=== PATIENT | female | born 1960 | race Caucasian/White ===

== ENCOUNTER → 2017-05-04 | Outpatient (CLI) | payer OTHER | END | disposition home or self-care (01) | LOC: MAMMO 14:57 | DX: Z12.31 Encounter for screening mammogram for malignant neoplasm of breast (principal) | CPT/HCPCS: 77067 ==

== ENCOUNTER → 2019-03-11 | Outpatient (CLI) | payer OTHER ==
[2018-05-16 08:40] VITALS: BP 119/59
[~2019-03-11] MED LIST: ACET500T68 PO; AMLO5TAB10 PO; ATEN50TA PO; CHOL200059 PO; CYAN100031 PO; DOXY100C14 PO; ESTR2TAB PO; HYDR12.58 PO; LISI1TAB20 PO; MULT-246 PO; OMEG10005 PO; OXYC1TAB15 PO; POTA99TA3 PO
[2019-03-11 09:10] LABS: BASO # 0.1 x10^3/uL (0.0-0.2); BASO % 1 % (0-3); EOS # 0.2 x10^3/uL (0.0-0.7); EOS % 2 % (0-3); HEMATOCRIT 42.4 % (36.0-47.0); HEMOGLOBIN 14.5 g/dL (12.0-15.5); LYMPH # 3.5 x10^3/uL (1.0-4.8); LYMPH % 39 % (24-48); MEAN CORPUSCULAR HEMOGLOBIN 31 pg (25-35); MEAN CORPUSCULAR HGB CONC 34 g/dL (31-37); MEAN CORPUSCULAR VOLUME 91 fL (79-100); MONO # 0.6 x10^3/uL (0.0-1.1); MONO % 7 % (0-9); NEUT # 4.7 x10^3/uL (1.8-7.7); NEUT % 52 % (31-73); PLATELET COUNT 261 x10^3/uL (140-400); RED BLOOD COUNT 4.66 x10^6/uL (3.50-5.40); RED CELL DISTRIBUTION WIDTH 12.8 % (11.5-14.5); WHITE BLOOD COUNT 9.1 x10^3/uL (4.0-11.0)
[2019-03-11 09:20] LABS: PROTHROMBIN TIME PATIENT 12.1 SEC (11.7-14.0)
[2019-03-11 09:24] LABS: ALBUMIN 3.1 g/dL (3.4-5.0); CALCIUM 9.3 mg/dL (8.5-10.1); CREATININE 1.1 mg/dL (0.6-1.0); GFR 50.8; POTASSIUM 4.2 mmol/L (3.5-5.1)
--- NOTE | 2019-03-11 12:30 | EKG ---
[facility] [address] [place] [address] Test Date: 2019-03-11 Test Time: 12:24:41 Pat Name: RASHAUN DUMAS Department: Room: Gender: F Mortgage Processing Manager: : 1960 Requested By: ADOLFO FLYNN Order Number: [id number] Reading MD: Javier Escalante Measurements Intervals [place] Rate: 66 P: 49 NC: 180 QRS: -17 QRSD: 76 T: 26 QT: 422 QTc: 444 Interpretive Statements SINUS RHYTHM LEFTWARD AXIS Electronically Signed On 03-11-2019 13:52:15 TEST BAKER by Javier Escalante
--- NOTE | 2019-03-11 16:18 | RAD ---
EXAM: Chest, 2 views. HISTORY: Hypertension. COMPARISON: None. FINDINGS: 2 views of the chest are obtained. There is no infiltrate, pleural effusion or pneumothorax. The heart is normal in size. IMPRESSION: No acute pulmonary finding. Electronically signed by: Samanta Garrison MD (03/11/2019 4:15 PM) [facility]
== END | disposition home or self-care (01) ==
LOC: SURGPAT 12:52
PROVIDERS: ATTEND Orthopaedic Surgery
DX: Z01.818 Encounter for other preprocedural examination (principal); M17.11 Unilateral primary osteoarthritis, right knee; I10 Essential (primary) hypertension; Z88.8 Allergy status to other drugs, medicaments and biological substances
CPT/HCPCS: 36415; 71046; 80048; 82040; 82306; 85025; 85610; 85651; 85730; 87641; 93005

== ENCOUNTER 2019-03-26 06:11 | Inpatient (IN) | payer OTHER ==
[2019-03-26] VITALS (10 sets, daily range): BP systolic 103–134; BP diastolic 55–72
[~2019-03-26] VITALS: Ht 160 cm; Wt 102.1 kg
[~2019-03-26 06:11] MED LIST changes: +ACETAMINOPHEN 500 MG TABLET PO PRN; +GABAPENTIN 300 MG CAPSULE. PO PRN; +MORPHINE SULFATE 5 MG, KETOROLAC 30MG VIAL 30 MG, ROPIVacaine 0.5% PF 60 ML, EPINEPHrin... INT ART ONE; +TRANEXAMIC ACID 1,000 MG in IV NS 50ML -- 1ST BAG INJ ONE
[2019-03-26] MEDS ORDERED: fentaNYL PF VIAL 100 MCG/2 ML VIAL IV PRN ×3 (07:00→07:30)
[2019-03-26] MEDS ORDERED: PROCHLORPERAZINE 10 MG/2 ML VIAL. IV PRN (07:00)
[2019-03-26] MEDS ORDERED: IV RINGERS,LACTATED 1000ML 1,000 ML IV SCH (07:00)
[2019-03-26] MEDS ORDERED: ONDANSETRON PF 4 MG/2 ML VIAL. IV PRN (07:00)
[2019-03-26] MEDS ORDERED: ROCURONIUM 50 MG/5 ML VIAL. ONE (07:19)
[2019-03-26] MEDS ORDERED: fentaNYL PF VIAL 250 MCG/5 ML VIAL ONE (07:19)
[2019-03-26 07:30] LABS: PROTHROMBIN TIME PATIENT 12.6 SEC (11.7-14.0)
[2019-03-26] MEDS ORDERED: diphenhydrAMINE 50 MG/ML VIAL IV PRN (07:30)
[2019-03-26] MEDS ORDERED: ZOLPIDEM 5 MG TABLET. PO PRN (07:30)
[2019-03-26] MEDS ORDERED: ACETAMINOPHEN 500 MG TABLET PO PRN (07:30)
[2019-03-26] MEDS ORDERED: PROCHLORPERAZINE 5 MG TABLET. PO PRN (07:30)
[2019-03-26] MEDS ORDERED: CALCIUM CARBONATE 500 MG TAB.CHEW PO PRN (07:30)
[2019-03-26] MEDS ORDERED: DEXTROSE 50% 25 GM / 50ML DISP.SYRIN. IV PRN (07:30)
[2019-03-26] MEDS ORDERED: MORPHINE SULFATE 2 MG/ML VIAL. IV PRN (07:30)
[2019-03-26] MEDS ORDERED: IV NORMAL SALINE 1000ML BAG 1,000 ML IV SCH (07:30)
[2019-03-26] MEDS ORDERED: 0.9 % SODIUM CHLORIDE 10 ML DISP.SYRIN. IV PRN (07:30)
[2019-03-26] MEDS ORDERED: TRANEXAMIC ACID 1,000 MG in IV NS 50ML -- 2ND BAG INJ ONE (08:00)
[2019-03-26] MEDS: FERROUS SULFATE 325 MG TABLET. PO SCH ×2 (08:00→17:24)
--- NOTE | 2019-03-26 08:11 | HP ---
ADMIT DATE: 03/26/2019 CHIEF COMPLAINT: Right knee pain. HISTORY OF PRESENT ILLNESS: The patient has longstanding right knee degenerative joint disease that got only partial relief from previous injections including steroid and viscosupplementation. She is very limited and very pleased with her total knee arthroplasty on the left and wished to proceed with more definitive treatment as of her last clinic visit. PAST MEDICAL HISTORY: Significant for hypertension, one functional kidney, history of rheumatic fever as a child, osteoarthritis. PAST SURGICAL HISTORY: Gastric bypass, total left knee arthroplasty, tonsillectomy, hysterectomy, cholecystectomy, ureter surgery on the kidney and laparoscopic appendectomy. FAMILY HISTORY: Hypertension, arthritis and skin cancer in her otherwise healthy 81-year-old mom. Hypertension and heart disease in her 83-year-old dad. Diabetes in her 56-year-old brother. SOCIAL HISTORY: Denies smoking or drug use. Occasional social alcohol use. Lives at home with her . MEDICATIONS: List is reviewed. ALLERGIES: INCLUDE CODEINE, WHICH UPSETS HER STOMACH A REACTION WELL NONSTEROIDALS WHICH SHE CANNOT TAKE DUE TO HER PREVIOUS GASTRIC BYPASS SURGERY. PHYSICAL EXAMINATION: GENERAL: Height 63.5, weight 225, BMI 39.23. VITAL SIGNS: Per admission sheet. HEENT: Atraumatic, normocephalic. HEART: Regular rate and rhythm. LUNGS: Clear to auscultation bilaterally. ABDOMEN: Benign. EXTREMITIES: Examination of the right knee reveals tender over both the medial and lateral joint line. No gross ligament instability. She has a slight patellofemoral crepitus without instability. Well-healed incision on the contralateral knee from total knee arthroplasty. Good alignment, stability of bilateral hips and ankles. IMAGING: X-rays show tricompartmental degenerative disease of the right knee. ASSESSMENT: Primary osteoarthritis, right knee and history of well-functioning left total knee arthroplasty. TREATMENT PLAN: She is familiar with total knee arthroplasty on the left from 5 years ago. We reviewed with her risks, benefits, postoperative course of total knee arthroplasty including possibility of infection, continued pain, premature wear or loosening, nerve or blood vessel damage, medical or other anesthetic complications among others. Her was particularly concerned with pain control measures in the immediate postoperative range especially, I explained this to him. She wishes to proceed with surgical treatment for a right total knee arthroplasty with [facility] admission to follow up. ADOLFO FLYNN MD DR: GRACIELA/timur JOB#: [id number] / [id number]
[2019-03-26] MEDS ORDERED: ONDANSETRON PF 4 MG/2 ML VIAL. ONE (08:12)
[2019-03-26] MEDS ORDERED: SEVOFLURANE > 120 MINUTES. IH ONE (08:12)
[2019-03-26] MEDS ORDERED: DEXAMETHASONE SOD PHOS 4 MG/ML VIAL ONE (08:12)
[2019-03-26] MEDS ORDERED: PROPOFOL 20 ML IV ONE (08:12)
[2019-03-26] MEDS ORDERED: LIDOCAINE 2% PF 5 ML VIAL. ONE (08:12)
[2019-03-26] MEDS: DOXYCYCLINE HYCLATE 100 MG TABLET PO SCH ×2 (09:00→21:00)
[2019-03-26] MEDS: MULTIVITAMIN with MINERAL TABLET. PO SCH (09:00)
[2019-03-26] MEDS: SENNOSIDES/DOCUSATE 8.6/50MG TABLET. PO SCH (09:00)
[2019-03-26] MEDS ORDERED: NON FORMULARY ITEM (Potassium Gluconate 99 MG) PO SCH (09:00)
[2019-03-26] MEDS: hydroCHLOROthiazide 25 MG TABLET PO SCH (09:00)
[2019-03-26] MEDS: ATENOLOL 50 MG TABLET. PO SCH ×2 (09:00→20:33)
[2019-03-26] MEDS ORDERED: NON FORMULARY ITEM (Multivitamin (Multi-Vitamin Daily) 1 EACH) PO SCH (09:00)
[2019-03-26] MEDS: LISINOPRIL 20 MG TABLET PO SCH (09:00)
[2019-03-26] MEDS: ESTRADIOL 1 MG TABLET. PO SCH (09:00)
[2019-03-26] MEDS: amLODIPine BESYLATE 5 MG TABLET PO SCH (09:00)
[2019-03-26] MEDS ORDERED: NEOSTIGMINE METHYLSULFATE 5 MG/5 ML SYRINGE. ONE (09:27)
[2019-03-26] MEDS ORDERED: GLYCOPYRROLATE 1 MG/5 ML VIAL. ONE (09:27)
[2019-03-26] MEDS ORDERED: HYDROmorphone 2 MG/ML VIAL ONE (10:19)
[2019-03-26] MEDS: HYDROmorphone 2 MG/ML VIAL IV PRN ×3 (10:34→11:02)
--- NOTE | 2019-03-26 10:38 | RAD ---
Examination: KNEE RIGHT 2V History: Postoperative Comparison/Correlation: None Findings: Frontal and lateral views of the right knee were obtained. Overlying bandages are present. Total right knee joint arthroplasty is present. Soft tissue gas compatible with immediate postoperative status is noted. No fracture. No significant joint effusion. Impression: Total right knee arthroplasty. No suspicious finding. Electronically signed by: Calixto Cardona MD (03/26/2019 10:35 AM) [facility]
--- NOTE | 2019-03-26 11:30 | NUR ---
arrived to floor via bed. she is rating he pain 7-8. she has good motion, sensation and bilateral pulses. o2 sat on room air is down to 55%. applied o2 per nasal cannula ; gradually up to 4l to get a saturation of 95%.. oriented to room; at bedside. will reinforce orientation and history when aroused.
--- NOTE | 2019-03-26 11:34 | PDOC4 ---
Operative Note Operative Note Date of surgery: 03/26/2019 Preoperative diagnosis: Degenerative joint disease right knee Postoperative diagnosis: Same Operative procedure: Right total knee arthroplasty Surgeon: Mee Assist: Amaya Anesthesia: Gen. Estimated blood loss: 10 mL Complications: None Specimens: Cartilage surfaces to pathology Drains: Hemovac drain and intra-articular pain catheter Operative indications: Please see my preoperative history and physical and previous clinic notes for detail operative indications. Operative text: Patient was identified procedure verified patient placed in the supine position on the operating table after adequate amounts of general anesthesia were administered the right lower extremity was prepped and draped in standard sterile fashion with a thigh tourniquet. After timeout was performed patient procedure identified and verified the right lower extremity was exsanguinated by Esmarch bandage tourniquet inflated to 350 mmHg a midline incision was made with a medial parapatellar approach fat pad was excised patella was everted femur was drilled for the intramedullary guide and an additional 2 mm was taken off due to her flexion contracture.. Distal sizing was carried out using a size 4 femoral cutting block which was used to cut AP lateral chamfer cuts in 3 of external rotation tibia was exposed and the extra medullary cutting guide was placed in line with the second metatarsal PCL was preserved and flexion extension gaps were noted to be excellent with a 12 mm spacer block and a size 4 tibial component was pinned in place drilled and broached. Cruciate retaining femoral component was placed and I elected to do a medial congruent supplementation due to some PCL laxity although ligament overall was intact and stability was excellent with full range of motion excellent ligament balance patella was medialized with a size 29 patellar component which noted excellent tracking and lateral patellar bone was removed to prevent any impingement. Trial components removed bleeding points controlled by electrocautery thorough irrigation carried out normal saline solution and the following components were cemented in place with polymethylmethacrylate cement a size 4 right journey nonporous tibial baseplate a size 4 cruciate retaining Oxinium femoral component with a temporary 12 mm deep dish articular insert and a 29 mm resurfacing round patellar component were cemented in place excess cement was removed due to the excellent fitting the 12 mm deep dished articular insert was replaced after thorough irrigation carried out normal saline solution Hemovac drain pain catheter were placed pain catheter mixture was injected throughout the joint capsule retinaculum was closed with #2 Ethibond suture in an interrupted fashion and reinforced with #1 PDS strata fix suture subcutaneous closure with buried Vicryl suture skin closure with 30 strata fix Monocryl robbie dressing with Acticoat were placed and patient was returned to recovery room in stable condition having tolerated the procedure well toes were noted be warm pink find deflation of the tourniquet Piotr Conde nurse practitioner was present for the procedure and assisted in the prepping draping retraction and skin closure ADOLFO FLYNN MD Mar 26, 2019 11:34
[2019-03-26] MEDS: ONDANSETRON ODT 4 MG TAB.RAPDIS. PO SCH ×2 (12:00→17:26)
[2019-03-26] MEDS: ONDANSETRON PF 4 MG/2 ML VIAL. IV SCH ×2 (12:00→15:54)
--- NOTE | 2019-03-26 13:24 | NUR ---
alessia Viera nausea or vomiting noted Addendum: 03/26/19 at 1326 by STEVEN CASTELLANO RN Oxygen level decreased to 2l/NC sat level 97%, arya % texting on cell phone
[2019-03-26] MEDS ORDERED: WARFARIN 7.5 MG TABLET. PO ONE (16:00)
--- NOTE | 2019-03-26 16:00 | NUR ---
Antihypertensives held for vital signs of 115/64 & 69
[2019-03-26] MEDS: oxyCODONE IR 5 MG TABLET PO PRN (19:10)
--- NOTE | 2019-03-26 19:28 | NUR ---
order obtained to have medication given through her IAC. will obtain
[2019-03-26] MEDS: KETOROLAC 30MG VIAL 30 MG, BUPIVACAINE MPF 0.25% 20 ML, EPINEPHrine 0.5 MG in TOTAL VOL... INT ART SCH (19:39)
[2019-03-27 03:29] VITALS: BP 103/53
[2019-03-27 04:53] LABS: HEMATOCRIT 33.4 % (36.0-47.0); HEMOGLOBIN 11.3 g/dL (12.0-15.5)
[2019-03-27 05:11] LABS: PROTHROMBIN TIME PATIENT 16.2 SEC (11.7-14.0)
[2019-03-27] MEDS: KETOROLAC 30MG VIAL 30 MG, BUPIVACAINE MPF 0.25% 20 ML, EPINEPHrine 0.5 MG in TOTAL VOL... INT ART SCH (05:46)
[2019-03-27] MEDS: ONDANSETRON PF 4 MG/2 ML VIAL. IV SCH ×2 (05:51)
[2019-03-27] MEDS: traMADol 50 MG TABLET PO SCH ×3 (05:52→17:54)
[2019-03-27] MEDS ORDERED: MAGNESIUM HYDROXIDE 2,400 MG/30 ML ORAL.SUSP. PO PRN (06:00)
[2019-03-27] MEDS: ONDANSETRON ODT 4 MG TAB.RAPDIS. PO SCH ×2 (06:00)
[2019-03-27] MEDS: GABAPENTIN 100 MG CAPSULE. PO SCH ×3 (06:00→21:35)
[2019-03-27 06:21] VITALS: BP 117/64
--- NOTE | 2019-03-27 07:38 | PDOC ---
ORTHO PROGRESS NOTES Subjective Patient sleeping but easily awakened with mild complaint of pain. Post-op Day: 1 Procedure R TKA Vitals Vital Signs Date Time Temp Pulse Resp B/P (MAP) Pulse Ox O2 Delivery O2 Flow Rate FiO2 03/27/19 06:52 18 Room Air 03/27/19 06:21 98.5 64 117/64 (81) 94 98.5 03/26/19 21:19 3.0 Labs Laboratory Tests Test 03/26/19 06:24 03/27/19 04:00 Prothrombin Time 12.6 SEC (11.7-14.0) 16.2 SEC (11.7-14.0) Prothromb Time International Ratio 1.0 (0.8-1.1) 1.3 (0.8-1.1) Activated Partial Thromboplast Time 26 SEC (24-38) Hemoglobin 11.3 g/dL (12.0-15.5) Hematocrit 33.4 % (36.0-47.0) Mean Corpuscular Hemoglobin Concent 34 g/dL (31-37) Laboratory Tests Test 03/27/19 04:00 Hemoglobin 11.3 g/dL (12.0-15.5) Hematocrit 33.4 % (36.0-47.0) Mean Corpuscular Hemoglobin Concent 34 g/dL (31-37) Prothrombin Time 16.2 SEC (11.7-14.0) Prothromb Time International Ratio 1.3 (0.8-1.1) Notes Awakened and comfortable at this time. Assessment and Plan POD # 1 S/P R TKA motor and sensation intact distally moving toes and foot without restriction dressing dry and intact PT/OT today KINZA NELSON APRN Mar 27, 2019 07:38
[2019-03-27] MEDS: DOXYCYCLINE HYCLATE 100 MG TABLET PO SCH (09:00)
[2019-03-27 09:19] VITALS: BP 124/69
[2019-03-27] MEDS: hydroCHLOROthiazide 25 MG TABLET PO SCH (09:21)
[2019-03-27] MEDS: MULTIVITAMIN with MINERAL TABLET. PO SCH (09:21)
[2019-03-27] MEDS: CYANOCOBALAMIN (VITAMIN B-12) 1,000 MCG TABLET. PO SCH (09:21)
[2019-03-27] MEDS: amLODIPine BESYLATE 5 MG TABLET PO SCH (09:22)
[2019-03-27] MEDS: LISINOPRIL 20 MG TABLET PO SCH (09:22)
[2019-03-27] MEDS: oxyCODONE IR 5 MG TABLET PO PRN ×2 (09:22→16:18)
[2019-03-27] MEDS: CHOLECALCIFEROL (VITAMIN D3) 5,000 UNIT CAPSULE PO SCH (09:22)
[2019-03-27] MEDS: ATENOLOL 50 MG TABLET. PO SCH ×2 (09:23→21:37)
[2019-03-27] MEDS: ACETAMINOPHEN 500 MG TABLET PO SCH ×3 (09:23→21:36)
[2019-03-27] MEDS: SENNOSIDES/DOCUSATE 8.6/50MG TABLET. PO SCH (09:23)
[2019-03-27] MEDS: ESTRADIOL 1 MG TABLET. PO SCH (09:23)
[2019-03-27] MEDS: FERROUS SULFATE 325 MG TABLET. PO SCH ×2 (09:23→16:16)
[2019-03-27] MEDS ORDERED: ONDANSETRON ODT 4 MG TAB.RAPDIS. PO PRN (12:00)
[2019-03-27] MEDS ORDERED: ONDANSETRON PF 4 MG/2 ML VIAL. IV PRN (12:00)
--- NOTE | 2019-03-27 13:46 | NUR ---
Pharmacy Warfarin Dosing Note S:Pharmacy consulted to assist with anticoagulation therapy started 03/26/19 with target INR: 1.6 - 2.5 O:RASHAUN DUMAS is a 58 year old F s/p Right TKA LABS: Last INR: 1.3 Last HGB: 11.3 Last HCT: 33.4 Last PLT: - Last dose of 7.5 mg given on 03/26/19 at 1724 Previous Regimen: NA Vitamin K given: N Drug Interaction Changes: Same Interacting Drug Ongoing Drug Interactions: Doxycycline A:INR of 1.3 is below desired range. Target range for this patient is: 1.6 - 2.5 P: Warfarin dose: 5 mg Today at 1600 Bridge Therapy: None Next INR due 03/28/19 Pharmacy anticoagulation service will continue to follow. AURY LOPEZ, [facility], 03/27/19 1404
--- NOTE | 2019-03-27 15:09 | NUR ---
IAC discontinued per order tolerated procedure well, foam dressing applied to site
[2019-03-27] MEDS ORDERED: WARFARIN 5 MG TABLET. PO ONE (16:00)
[2019-03-27] MEDS ORDERED: BISACODYL 10 MG SUPP.RECT. PR PRN (16:00)
[2019-03-27 18:17] VITALS: BP 130/61
[2019-03-27] MEDS ORDERED: LACTOBACILLUS RHAMNOSUS GG 1 CAPSULE. PO SCH (21:00)
[2019-03-28] MEDS: traMADol 50 MG TABLET PO SCH ×4 (00:21→17:57)
[2019-03-28] MEDS: ACETAMINOPHEN 500 MG TABLET PO SCH ×4 (03:08→21:35)
[2019-03-28 05:05] VITALS: BP 109/54
[2019-03-28 05:30] LABS: HEMATOCRIT 34.3 % (36.0-47.0); HEMOGLOBIN 11.9 g/dL (12.0-15.5)
[2019-03-28 05:48] LABS: PROTHROMBIN TIME PATIENT 19.2 SEC (11.7-14.0)
[2019-03-28] MEDS: GABAPENTIN 100 MG CAPSULE. PO SCH ×3 (06:34→21:35)
[2019-03-28 08:30] VITALS: BP 131/71
[2019-03-28] MEDS: oxyCODONE IR 5 MG TABLET PO PRN ×3 (08:52→21:33)
[2019-03-28] MEDS: ESTRADIOL 1 MG TABLET. PO SCH (08:53)
[2019-03-28] MEDS: FERROUS SULFATE 325 MG TABLET. PO SCH ×2 (08:53→17:02)
[2019-03-28] MEDS: SENNOSIDES/DOCUSATE 8.6/50MG TABLET. PO SCH (08:53)
[2019-03-28] MEDS: MULTIVITAMIN with MINERAL TABLET. PO SCH (08:53)
[2019-03-28] MEDS: amLODIPine BESYLATE 5 MG TABLET PO SCH (08:54)
[2019-03-28] MEDS: LISINOPRIL 20 MG TABLET PO SCH (08:54)
[2019-03-28] MEDS: ATENOLOL 50 MG TABLET. PO SCH ×2 (08:55→21:35)
[2019-03-28] MEDS: hydroCHLOROthiazide 25 MG TABLET PO SCH (08:55)
--- NOTE | 2019-03-28 11:07 | NUR ---
Pharmacy Warfarin Dosing Note S:Pharmacy consulted to assist with anticoagulation therapy started 03/26/19 with target INR: 1.6 - 2.5 O:RASHAUN DUMAS is a 58 year old F with TKA Right TKA LABS: Last INR: 1.6 Last HGB: 11.9 Last HCT: 33.4 Last PLT: - Last dose of 5 mg given on 03/27/19 at 1724 Previous Regimen: Vitamin K given: N Drug Interaction Changes: Same Interacting Drug Ongoing Drug Interactions: Doxycycline A:INR of 1.6 is within desired range. Target range for this patient is: 1.6 - 2.5 P: Warfarin dose: 3 mg Bridge Therapy: None Next INR due TOMORROW Pharmacy anticoagulation service will continue to follow. MAGNUS PARADA [facility], 03/28/19 [id number]
--- NOTE | 2019-03-28 12:42 | PDOC ---
ORTHO PROGRESS NOTES Subjective Right knee pain increased after starting PT yesterday, up and walking. Denies chest pain, shortness of breath. Post-op Day: 2 Procedure RIGHT knee TKA Vitals Vital Signs Date Time Temp Pulse Resp B/P (MAP) Pulse Ox O2 Delivery O2 Flow Rate FiO2 03/28/19 08:55 76 131/71 03/28/19 08:30 Room Air 03/28/19 05:05 98.8 20 93 98.8 Labs Laboratory Tests Test 03/27/19 04:00 03/28/19 05:11 Hemoglobin 11.3 g/dL (12.0-15.5) 11.9 g/dL (12.0-15.5) Hematocrit 33.4 % (36.0-47.0) 34.3 % (36.0-47.0) Mean Corpuscular Hemoglobin Concent 34 g/dL (31-37) 35 g/dL (31-37) Prothrombin Time 16.2 SEC (11.7-14.0) 19.2 SEC (11.7-14.0) Prothromb Time International Ratio 1.3 (0.8-1.1) 1.6 (0.8-1.1) Laboratory Tests Test 03/28/19 05:11 Hemoglobin 11.9 g/dL (12.0-15.5) Hematocrit 34.3 % (36.0-47.0) Mean Corpuscular Hemoglobin Concent 35 g/dL (31-37) Prothrombin Time 19.2 SEC (11.7-14.0) Prothromb Time International Ratio 1.6 (0.8-1.1) Notes Bilateral lower extremities benign, calf non tender bilaterally with no warmth, palpable cords, neg Bea's bilaterally. N/V intact. Muscle pain. Vitals normal and Hgb improving. Problems: (1) S/P total knee arthroplasty Assessment and Plan Post op Day 2 doing well with anticipated increased pain following PT. Continue PT/OT efforts. Continue current medications. Problem Qualifiers (1) S/P total knee arthroplasty: Laterality: right Qualified Codes: Z96.651 - Presence of right artificial knee joint KINZA LORENZO Jr. PAC Mar 28, 2019 12:42 pm
--- NOTE | 2019-03-28 14:07 | PATHOLOGY ---
[facility] Accession Number: [id number] . 01 Material submitted: . knee - RIGHT KNEE ARTICULATING SURFACES. Modifiers: right . 01 Clinical history: . Primary osteoarthritis . 02 Diagnosis: Bone, "right knee articulating surfaces", removal: - Degenerative osteoarthritis. - Synovial tissue with focal mild chronic inflammation. (SKM:lars; 03/28/2019) MBR 03/28/2019 1246 Local . 02 Electronically signed: . Gabriel Osuna MD, Pathologist NPI- [id number] . 01 Gross description: . Received in formalin labeled "Aaliyah Garcia, right knee articulating surfaces," are multiple segments of bone, including tibial plateau, measuring 13.7 x 11.8 x 2.2 cm in aggregate dimensions. Soft tissue and meniscus are present. The specimen displays focal eburnation of the articular surfaces. Placement Specialist bone and soft tissue are submitted in cassette A1, following decalcification. (DAC; 03/27/2019) XDC/XDC 03/27/2019 0809 Local . 02 Pathologist provided ICD-10: M17.11, M65.9 . 02 CPT . 583137, [id number] Specimen Comment: A courtesy copy of this report has been sent to [phone], [phone] Specimen Comment: [id number] Specimen Comment: Report sent to and Specimen Comment: A duplicate report has been generated due to demographic updates. Performed at: 01 [facility] [address], [place], [place] [id number] MD Aquiles Davis MD Phone: [phone] Performed at: 02 [facility] [address], [place] [id number] MD Kumar Chavez MD Phone: [phone]
[2019-03-28] MEDS ORDERED: WARFARIN 3 MG TABLET. PO ONE (16:00)
[2019-03-28 18:15] VITALS: BP 113/59
[2019-03-29] MEDS: traMADol 50 MG TABLET PO SCH ×3 (00:48→13:34)
[2019-03-29] MEDS: ACETAMINOPHEN 500 MG TABLET PO SCH ×3 (03:17→14:43)
[2019-03-29 06:02] VITALS: BP 125/71
[2019-03-29] MEDS: GABAPENTIN 100 MG CAPSULE. PO SCH ×2 (06:02→14:43)
[2019-03-29 07:08] LABS: HEMATOCRIT 33.8 % (36.0-47.0); HEMOGLOBIN 11.7 g/dL (12.0-15.5)
[2019-03-29] MEDS: oxyCODONE IR 5 MG TABLET PO PRN ×3 (07:20→14:42)
[2019-03-29] MEDS: ESTRADIOL 1 MG TABLET. PO SCH (09:18)
[2019-03-29] MEDS: hydroCHLOROthiazide 25 MG TABLET PO SCH (09:18)
[2019-03-29] MEDS: CYANOCOBALAMIN (VITAMIN B-12) 1,000 MCG TABLET. PO SCH (09:19)
[2019-03-29] MEDS: CHOLECALCIFEROL (VITAMIN D3) 5,000 UNIT CAPSULE PO SCH (09:19)
[2019-03-29] MEDS: LISINOPRIL 20 MG TABLET PO SCH (09:19)
[2019-03-29] MEDS: amLODIPine BESYLATE 5 MG TABLET PO SCH (09:20)
[2019-03-29] MEDS: MULTIVITAMIN with MINERAL TABLET. PO SCH (09:20)
[2019-03-29] MEDS: ATENOLOL 50 MG TABLET. PO SCH (09:20)
[2019-03-29] MEDS: SENNOSIDES/DOCUSATE 8.6/50MG TABLET. PO SCH (09:21)
[2019-03-29] MEDS: FERROUS SULFATE 325 MG TABLET. PO SCH (09:21)
[2019-03-29] MEDS ORDERED: OXYC5CAP PO (12:49)
--- NOTE | 2019-03-29 12:51 | SNU/HH DC ---
DISCHARGE ORDERS DISCHARGE INFORMATION: CONDITION ON DISCHARGE: Stable CODE STATUS: Code Status: Full [facility] SNF STAY <30 DAYS: Yes POST DISCHARGE ORDERS: ACTIVITY ORDERS: Activity as tolerated, Other, see below WEIGHT BEARING STATUS: No restrictions, Full weight bearing BATHING ORDERS: Shower-keep dressing dry, No Tub Bath until see WOUND/INCISION CARE: Ice to area for comfort, Keep wound elevated, Do not jason nge dressing (keep robbie dressing intact call if leaking dressing for further instructions) OTHER WOUND INSTRUCTIONS: 04/02 remove battery pack; unscrew tubing tape downwards FOLLOW-UP: ADDITIONAL FOLLOW-UP: call [phone] for a 2 week post op appt with Dr. Caban ANTICOAGULATION F/U NEEDED: House physician to monitor and manage coumadin per facility's protocol ??? TREATMENT/EQUIPMENT ORDERS: ADAPTIVE EQUIPMENT NEEDED: None Physical Therapy For: Evalulation/Treatment Occupational Therapy For: Evaluation/Treatment DISCHARGE MEDICATIONS: Home Meds Reported Medications Amlodipine Besylate (AMLODIPINE BESYLATE) 5 Mg Tablet, 5 MG PO DAILY for BP CONTROL, TAB 03/11/19 Potassium Gluconate (POTASSIUM GLUCONATE) 99 Mg Tablet, 99 MG PO DAILY for POTASSIUM SUPPLEMENT, TAB 03/11/19 Lisinopril/Hydrochlorothiazide (LISINOPRIL-HCTZ 20-25 MG TAB) 1 Each Tablet, 1 TAB PO DAILY for BP CONTROL, #90 TAB 3 Refills 03/11/19 Acetaminophen (ACETAMINOPHEN) 500 Mg Tablet, 500 MG PO PRN TID PRN for PAIN CONTROL, TAB 03/11/19 Doxycycline Monohydrate (DOXYCYCLINE MONOHYDRATE) 100 Mg Capsule, 100 MG PO BID for ACNE BREAKOUTS, CAP 03/11/19 Cyanocobalamin (Vitamin B-12) (B-12) 1,000 Mcg Tablet.er, 500 MCG PO 3X/WEEK for SUPPLEMENT 10/03/14 Cholecalciferol (Vitamin D3) (VITAMIN D-3) 2,000 Unit Tablet, 5000 UNIT PO 3X/WEEK for SUPPLEMENT 10/03/14 [place]-3 Fatty Acids (OMEGA-3) 1,000 Mg Capsule, 900 MG PO DAILY for SUPPPLEMENT 10/03/14 Multivitamin (MULTI-VITAMIN DAILY) 1 Each Tablet, 1 EACH PO DAILY 10/03/14 Estradiol (ESTRADIOL) 2 Mg Tablet, 2 MG PO DAILY for HORMONE REPLACEMENT THERAPY 10/03/14 Atenolol (ATENOLOL) 50 Mg Tablet, 50 MG PO BID, TAB 10/03/14 ADOLFO CABAN MD Mar 29, 2019 12:51
[2019-03-29] MEDS ORDERED: WARF4TAB64 PO (13:04)
--- NOTE | 2019-03-29 13:04 | NUR ---
Pharmacy Warfarin Dosing Note S:Pharmacy consulted to assist with anticoagulation therapy started 03/26/19 with target INR: 1.6 - 2.5 O:ALESIARASHAUN DANIELS is a 58 year old F with TKA Right TKA Allergies:NSAIDS (Non-Steroidal Anti-Inflamma codeine Height: 5 feet, 3 inches Weight: 102.806981 kg LABS: Last INR: 1.6 Last HGB: 11.7 Last HCT: 33.4 Last PLT: - Ongoing Drug Interactions: Doxycycline A:INR within desired Range. Target Range for this patient is: 1.6 - 2.5 P: Warfarin dose: 4 mg will be given today prior to discharge. Give 4mg daily. Draw INR on Monday,04/01 and request attending physician to dose warfarin for a goal INR 1.6 - 2.5 through end of therapy 04/21/19 (4weeks of therapy). Indication for warfarin is prevention of VTE after major joint surgery. MAGNUS PARADA [facility], 03/29/19 2048
[2019-03-29] MEDS ORDERED: non (13:06)
[2019-03-29] MEDS ORDERED: WARFARIN 4 MG TABLET. PO ONE (14:00)
--- NOTE | 2019-03-29 15:00 | NUR ---
uncertain if she has been aproved for [facility]. reviewed written dscharge instructions including restrictions to activities of daily living such as bathing, driving and ambulation with walker. spent time gong over her coumadin and the follow up needed for the next month. follow up with Dr. Caban. reviewed pain medication and the side effects. she verbalized understanding of these instructions.
[2019-03-29 16:11] VITALS: BP 113/60
--- NOTE | 2019-03-29 16:24 | NUR ---
report given to Samanta at [facility] especially the Coumadin. she has good pulses, sensation and motion bilaterally lower extremities. she was able to participate in both rehab sessions. her pain has been rated between 3-5. it has been controlled with dmitriy.
== END 2019-03-29 17:00 | DRG 470 ==
LOC: OPSVCIP 06:11 → 4 SOUTHEST 11:10
PROVIDERS: ADMIT Orthopaedic Surgery; ATTEND Orthopaedic Surgery
PROC: 0SRC069 Replacement of Right Knee Joint with Oxidized Zirconium on Polyethylene Synthetic Substitute, Cemented, Open Approach (ICD-10-PCS; principal; 2019-03-26 07:30)
DX: M17.11 Unilateral primary osteoarthritis, right knee (principal); I10 Essential (primary) hypertension; Z80.8 Family history of malignant neoplasm of other organs or systems; Z82.49 Family history of ischemic heart disease and other diseases of the circulatory system; Z83.3 Family history of diabetes mellitus; Z86.19 Personal history of other infectious and parasitic diseases; Z90.710 Acquired absence of both cervix and uterus; Z96.653 Presence of artificial knee joint, bilateral; Z98.84 Bariatric surgery status; Z88.8 Allergy status to other drugs, medicaments and biological substances; Z79.899 Other long term (current) drug therapy; Z90.49 Acquired absence of other specified parts of digestive tract
CPT/HCPCS: 36415; 73560; 85014; 85018; 85610; 85730; 86850; 86900; 86901; 88304; 88311; A7015; C1713; J0171; J0696; J1100; J1170; J1885; J2001; J2270; J2405; J2704; J2710; J2795; J3010; J3490; J7030; J7120; Q0162; 97116; 97150; 97535; C1769; G0378

== ENCOUNTER → 2019-08-21 | Outpatient (CLI) | payer OTHER ==
[~2019-08-21] MED LIST changes: -ACETAMINOPHEN 500 MG TABLET PO PRN; -GABAPENTIN 300 MG CAPSULE. PO PRN; -MORPHINE SULFATE 5 MG, KETOROLAC 30MG VIAL 30 MG, ROPIVacaine 0.5% PF 60 ML, EPINEPHrin... INT ART ONE; +OXYC5CAP PO; -TRANEXAMIC ACID 1,000 MG in IV NS 50ML -- 1ST BAG INJ ONE; +WARF4TAB64 PO; +non
--- NOTE | 2019-08-21 16:35 | RAD ---
History: Routine Screening. Technique: Bilateral digital mammographic routine views were obtained with CAD - computer aided detection. Comparison: 05/04/2017. Findings: Breast Tissue Density A : The breast tissue is predominately fatty replaced. There are no suspicious masses, microcalcifications or areas of architectural distortion. Impression: Negative mammogram. BI-RADS Category 1: Negative. Normal interval followup. . A mammogram does not have 100% sensitivity and therefore a negative imaging study should not delay further work up of a suspicious abnormality. The patient will receive a letter with the results in the mail. Patient information is entered into the reminder system with a target due date for the next screening mammogram. The patient will receive a reminder. "Our facility is accredited by the [employer] Mammography Program." BI-RADS 1 -- negative findings (within normal)
== END | disposition home or self-care (01) ==
LOC: MAMMO 08:58
PROVIDERS: ATTEND Nurse Practitioner Family
DX: Z12.31 Encounter for screening mammogram for malignant neoplasm of breast (principal)
CPT/HCPCS: 77067

== ENCOUNTER 2020-10-05 12:00 | Emergency (ER) | payer OTHER ==
[~2020-10-05] VITALS: Ht 162.6 cm; Wt 100.6 kg
[~2020-10-05 12:00] MED LIST changes: +AMLO-186 PO; -AMLO5TAB10 PO; +DOXY-181 PO; -DOXY100C14 PO
--- NOTE | 2020-10-05 12:52 | RAD ---
EXAM: XR SHOULDER_RIGHT 2+ VIEWS 10/05/2020 12:18 PM CLINICAL INDICATION: Fall, pain COMPARISON: None TECHNIQUE: 3 views of the right shoulder FINDINGS: No acute fracture. Alignment is normal. Mild acromioclavicular degenerative joint disease. The glenohumeral joint is maintained. There is a small density along the inferior rim of the glenoid , possibly a tiny intra-articular body. IMPRESSION: No acute osseous abnormality. Possible tiny intra-articular body in the inferior axillar y recess along the inferior glenoid. Electronically signed by: Zuly Beatty MD (10/05/2020 12:49 PM) [id number]
[2020-10-05 14:20] VITALS: BP 126/57
[2020-10-05] MEDS ORDERED: TRAM50TA PO ×2 (14:25→14:29)
[2020-10-05] MEDS ORDERED: MELO15TA23 PO (14:25)
--- NOTE | 2020-10-05 14:29 | ED.ADGEN ---
Past Medical History Past Medical History: Diabetes-Type II, Hypertension Past Surgical History: Knee Replacement Additional Past Surgical Histo: GASTRIC BYPASS, KNEE REPLACEMENT Smoking Status: Never Smoker Alcohol Use: None Drug Use: None General Adult EDM: Chief Complaint: MECHANICAL FALL HPI: HPI: Patient is a 60 year old [f__sex] who presents with [] Review of Systems: Review of Systems: Constitutional: Denies fever or chills. [] Eyes: Denies change in visual acuity. [] HENT: Denies nasal congestion or sore throat. [] Respiratory: Denies cough or shortness of breath. [] Cardiovascular: Denies chest pain or edema. [] GI: Denies abdominal pain, nausea, vomiting, bloody stools or diarrhea. [] : Denies dysuria. [] Musculoskeletal: Denies back pain or joint pain. [] Integument: Denies rash. [] Neurologic: Denies headache, focal weakness or sensory changes. [] Endocrine: Denies polyuria or polydipsia. [] Lymphatic: Denies swollen glands. [] Psychiatric: Denies depression or anxiety. [] Allergies: Allergies: Allergies Coded Allergies Type Severity Reaction Last Updated Verified NSAIDS (Non-Steroidal Anti-Inflamma Allergy Intermediate Unknown 08/21/19 Yes codeine Adverse Reaction Intermediate Nausea and Vomiting 03/11/19 Yes Physical Exam: PE: Constitutional: Well developed, well nourished, no acute distress, non-toxic appearance. [] HENT: Normocephalic, atraumatic, bilateral external ears normal, oropharynx moist, no oral exudates, nose normal. [] Eyes: PERRLA, EOMI, conjunctiva normal, no discharge. [] Neck: Normal range of motion, no tenderness, supple, no stridor. [] Cardiovascular:Heart rate regular rhythm, no murmur [] Lungs & Thorax: Bilateral breath sounds clear to auscultation [] Abdomen: Bowel sounds normal, soft, no tenderness, no masses, no pulsatile masses. [] Skin: Warm, dry, no erythema, no rash. [] Back: No tenderness, no CVA tenderness. [] Extremities: No tenderness, no cyanosis, no clubbing, ROM intact, no edema. [] Neurologic: Alert and oriented X 3, normal motor function, normal sensory function, no focal deficits noted. [] Psychologic: Affect normal, judgement normal, mood normal. [] Current Patient Data: Vital Signs: Vital Signs Date Time Temp Pulse Resp B/P (MAP) Pulse Ox O2 Delivery O2 Flow Rate FiO2 10/05/20 13:07 98.3 52 16 119/75 (90) 97 Room Air 98.3 EKG: EKG: [] Heart Score: Risk Factors: Risk Factors: DM, Current or recent (<one month) smoker, HTN, HLP, family history of CAD, obesity. Risk Scores: Score 0 - 3: 2.5% MACE over next 6 weeks - Discharge Home Score 4 - 6: 20.3% MACE over next 6 weeks - Admit for Clinical Observation Score 7 - 10: 72.7% MACE over next 6 weeks - Early Invasive Strategies Radiology/Procedures: Radiology/Procedures: [] Course & Med Decision Making: Course & Med Decision Making Pertinent Labs and Imaging studies reviewed. (See chart for details) [] Dragon Disclaimer: Dragon Disclaimer: This electronic medical record was generated, in whole or in part, using a voice recognition dictation system. Departure Departure Impression: Primary Impression: Shoulder contusion Additional Impression: Fall Disposition: HOME / SELF CARE / HOMELESS Condition: STABLE Referrals: ISAAC MACDONALD MD (PCP) Patient Instructions: Shoulder Pain, Shoulder Sprain, Shoulder, Range of Motion Exercises Scripts Tramadol Hcl (TRAMADOL HCL) 50 Mg Tablet 50 MG PO Q6HRS PRN for PAIN, #8 TAB Prov: ESPINOZA GUZMAN MD 10/05/20 Meloxicam (MELOXICAM) 15 Mg Tablet 1 TAB PO DAILY for 30 Days, #30 TAB 0 Refills Prov: ESPINOZA GUZMAN MD 10/05/20 Problem Qualifiers ESPINOZA GUZMAN MD Oct 05, 2020 14:29
== END 2020-10-05 15:12 | disposition home or self-care (01) ==
LOC: ER 12:00
DX: S40.011A Contusion of right shoulder, initial encounter (principal); E11.9 Type 2 diabetes mellitus without complications; I10 Essential (primary) hypertension; Z88.5 Allergy status to narcotic agent; Z88.8 Allergy status to other drugs, medicaments and biological substances; W18.39XA Other fall on same level, initial encounter; Y93.89 Activity, other specified; Y92.89 Other specified places as the place of occurrence of the external cause; Y99.8 Other external cause status
CPT/HCPCS: 73030; 99284

== ENCOUNTER 2020-12-11 07:54 | Day surgery (SDC) | payer OTHER ==
[~2020-12-11] VITALS: Ht 165.1 cm; Wt 97.0 kg
[~2020-12-11 07:54] MED LIST changes: +ATOR40TA59 PO; +IV RINGERS,LACTATED 1000ML 1,000 ML IV SCH; +MELO15TA23 PO; +METF500T16 PO; +MORPHINE SULFATE 2 MG/ML INJ. IVP PRN; +OXYB5TAB10 PO; +PANT20TA2 PO; +PROCHLORPERAZINE 10 MG/2 ML VIAL. IVP PRN; +TRAM50TA PO; +fentaNYL PF VIAL 100 MCG/2 ML VIAL IVP PRN
[2020-12-11 08:13] VITALS: BP 123/62
[2020-12-11] MEDS: INSULIN LISPRO 100 UNIT/ML 3ML VIAL for OP,RR ONLY. SQ PRN ×2 (08:34→12:59)
[2020-12-11] MEDS ORDERED: BUPIVACAINE MPF 0.5% 30 ML VIAL. ONE (08:38)
[2020-12-11] MEDS ORDERED: EPINEPHrine VIAL 30 MG/30 ML VIAL ONE (09:28)
[2020-12-11] MEDS ORDERED: LIDOCAINE 2% PF 5 ML VIAL. ONE (10:38)
[2020-12-11] MEDS ORDERED: PROPOFOL 10 MG/ML (20ML) VIAL. IV ONE (10:38)
[2020-12-11] MEDS ORDERED: DEXAMETHASONE SOD PHOS 4 MG/ML VIAL ONE ×2 (10:39)
[2020-12-11] MEDS ORDERED: ONDANSETRON PF 4 MG/2 ML VIAL. ONE (10:39)
[2020-12-11] MEDS ORDERED: fentaNYL PF VIAL 100 MCG/2 ML VIAL ONE (10:39)
[2020-12-11] MEDS ORDERED: SEVOFLURANE 61 TO 120 MINUTES. IH ONE (11:41)
[2020-12-11] MEDS: fentaNYL PF VIAL 100 MCG/2 ML VIAL IVP PRN ×2 (11:48→11:55)
[2020-12-11] MEDS ORDERED: HYDROmorphone 2 MG/ML VIAL ONE (11:58)
[2020-12-11] MEDS: HYDROmorphone 2 MG/ML VIAL IVP PRN ×4 (12:01→12:36)
[2020-12-11] MEDS ORDERED: PROCHLORPERAZINE 10 MG/2 ML VIAL. ONE (12:04)
[2020-12-11] MEDS ORDERED: OXYC-316 PO (12:06)
--- NOTE | 2020-12-11 12:13 | DISCH ---
DISCHARGE INSTRUCTIONS Condition on Discharge Condition on Discharge: Stable Activity After Discharge Activity Instructions for Disc: Other, see below (May do fine motor use with elbow at side such as eating writing and typing no lifting away from the body) Lifting Instructions after Dis: No heavy lifting Exercise Instruction after Dis: Exercise per therapy Weight Bearing Status after Di: Non weight bearing Diet after Discharge Diet after Discharge: Regular Wound Incision Care Wound/Incision Care: Ice to area for comfort, Change dressing (Remove dressing after 2 days may then shower) Community/Resources/Services Services at Discharge: PT EVALUATE & TREAT (Passive range of motion only of right shoulder for 4 weeks postoperatively) Contacting the after DC Call your doctor for: Concerns you may have Follow-Up Follow up with: Dr. Caban or Price 7 to 10 days Treatment/Equipment after DC Adaptive Equipment Issued: None ADOLFO CABAN MD Dec 11, 2020 12:13
[2020-12-11] MEDS ORDERED: ROPIVacaine 0.5% PF 20 ML VIAL. ONE (12:20)
[2020-12-11] MEDS ORDERED: MIDAZOLAM HCL/PF 2 MG/2 ML VIAL. ONE (12:23)
[2020-12-11] MEDS ORDERED: MIDAZOLAM HCL/PF 2 MG/2 ML VIAL. IV ONE (12:45)
[2020-12-11] MEDS ORDERED: INSULIN LISPRO 100 UNIT/ML 3ML VIAL for OP,RR ONLY. SQ ONE ×2 (13:00)
[2020-12-11] MEDS ORDERED: BUPIVACAINE MPF 0.5% 30 ML VIAL. IJ ONE (13:00)
[2020-12-11 13:18] VITALS: BP 169/89
--- NOTE | 2020-12-11 15:46 | PDOC4 ---
Operative Note Operative Note Date of surgery: 12/11/2020 Preoperative diagnosis: Right shoulder rotator cuff tear with superior labral tear and possible biceps anchor compromise Post operative diagnosis: Full-thickness supraspinatus tear and type I SLAP tear Operative procedure: Right shoulder arthroscopy debridement of type I SLAP tear and subacromial bursa as well as arthroscopic rotator cuff repair Surgeon: Mee Assist: Nolan dickerson assist Anesthesia: General plus scalene block Estimated blood loss: 10 cc Complications: None Operative indications: Patient is a 60-year-old female with rotator cuff tear documented on MRI and concern for biceps anchor compromise with superior labral tear I had gone over with her the possibility of rotator cuff repair possible biceps tenodesis and the significance of the repair possibility of nonhealing infection continued pain and weakness nerve or blood vessel damage medical or other anesthetic complications among others and the general recovery process and expectations. All her questions were answered and she wishes to proceed with surgical evaluation and treatment Operative text: Patient was identified procedure verified patient placed in the supine position on the operating table. After adequate amounts of general anesthesia were administered with a pre-existing scalene block, she was placed in the decubitus position right side up all bony promises were well-padded. The right shoulder was then examined under anesthesia full range of motion no instability was noted the shoulder was prepped and draped in standard sterile fashion and placed in the arthroscopic arm zendejas with a total of 10 pounds of traction. After timeout was performed patient procedure identified and verified a standard posterior portal was established an anterior portal established using spinal needle localization and the shoulder joint was systematically examined. She was noted to have a superior labral tear that was debrided back to stable tissue and no biceps labral compromise was noted subscapularis partial tear was debrided back to stable tissue as well. She was noted to have a full-thickness tear of the distal supraspinatus insertion with normal bare area of the humerus and normal capsuloligamentous structures. Subacromial space was then entered and significant irritated subacromial bursa was noted and was cleared for visu alization. Rotator cuff footprint was debrided back to stable bony bleeding tissue and a double loaded juggernaut anchor was placed at the medial row sutures were placed in a simple fashion and anchored laterally with a [facility] lateral row anchor which gave excellent watertight repair examined under all degrees of internal/external rotation. Joint was drained of arthroscopic fluid portals closed with nylon suture sterile dressings were applied patient was placed in an immobilizer return to recovery room in stable condition having tolerated procedure well. Nolan chamberlain was present for the procedure and assisted in patient positioning prepping draping retraction equipment positioning closure and dressings ADOLFO FLYNN MD Dec 11, 2020 15:46
== END 2020-12-11 14:02 | disposition home or self-care (01) ==
LOC: SURG 07:54
PROVIDERS: ATTEND Orthopaedic Surgery
DX: S43.431A Superior glenoid labrum lesion of right shoulder, initial encounter (principal); M75.101 Unspecified rotator cuff tear or rupture of right shoulder, not specified as traumatic; I10 Essential (primary) hypertension; E78.00 Pure hypercholesterolemia, unspecified; E11.9 Type 2 diabetes mellitus without complications; K21.9 Gastro-esophageal reflux disease without esophagitis; M19.90 Unspecified osteoarthritis, unspecified site; Z79.899 Other long term (current) drug therapy; Z98.890 Other specified postprocedural states; X58.XXXA Exposure to other specified factors, initial encounter; Y93.89 Activity, other specified; Y92.89 Other specified places as the place of occurrence of the external cause; Y99.8 Other external cause status
CPT/HCPCS: 29827; 29828; 64415; 82962; A4209; A4565; A4930; C1713; J0171; J0690; J0780; J1100; J1170; J1815; J2250; J2405; J2704; J2795; J3010; J3490; A4223